=== PATIENT | female | born 2000 | race Caucasian/White ===

== ENCOUNTER 2024-04-06 15:18 | Emergency (ER) | payer BC, MEDICAID ==
[~2024-04-06] VITALS: Ht 172.7 cm; Wt 65.0 kg
[2024-04-06 15:23] VITALS: O2SAT 99
[2024-04-06 15:38] VITALS: BP 114/75; PULSE 64; RESP 18; TEMP 98.7; O2SAT 99
[2024-04-06 15:47] LABS: BASOPHILS % 0.8 % (0.0-2.0); EOSINOPHILS % 2.1 % (0.0-5.0); HEMATOCRIT. 39.3 % (36.0-48.0); HEMOGLOBIN. 13.3 g/dL (12.0-16.0); LYMPHOCYTES % 34.9 % (20.0-50.0); MEAN CORPUSCULAR HGB CONC 33.8 g/dL (31.0-37.0); MEAN CORPUSCULAR VOLUME 85.8 fL (81.0-99.0); MEAN PLATELET VOLUME 9.3 fl (7.4-10.4); MONOCYTES % 6.8 % (2.0-8.0); NEUTROPHILS % 55.4 % (40.0-76.0); PLATELET 213 x1000/uL (130-400); RED BLOOD CELL COUNT 4.58 mill/uL (4.2-5.4); RED CELL DISTRIBUTION WIDTH 13.9 % (11.6-14.6); WHITE BLOOD COUNT 4.2 x1000/uL (4.5-11.0)
[2024-04-06 15:53] LABS: CHLORIDE 106 mEq/L (98-107); POTASSIUM 4.3 mEq/L (3.5-5.1); SODIUM 140 mEq/L (136-145)
[2024-04-06 15:54] LABS: CALCIUM 9.9 mg/dL (8.7-10.4); CARBON DIOXIDE 29 mEq/L (21-32)
[2024-04-06 15:59] LABS: CREATININE 0.7 mg/dL (0.6-1.0); GLUCOSE 85 mg/dL (70-105); UREA NITROGEN BLOOD 10 mg/dL (9-23)
[2024-04-06 16:48] LABS: HCG SCREEN NEGATIVE
== END 2024-04-06 19:11 | disposition home or self-care (01) ==
LOC: ER 15:18
DX: O34.81 Maternal care for other abnormalities of pelvic organs, first trimester (principal); N83.201 Unspecified ovarian cyst, right side; Z3A.01 Less than 8 weeks gestation of pregnancy
CPT/HCPCS: 36415; 76830; 76856; 80048; 81025; 84703; 85025; 86850; 86900; 99284

== ENCOUNTER 2024-08-31 11:25 | Emergency (ER) | payer MEDICAID ==
[~2024-08-31] VITALS: Ht 172.7 cm; Wt 63.5 kg
[2024-08-31 11:27] VITALS: BP 124/85; RESP 16; TEMP 36.8; O2SAT 98
[2024-08-31 11:31] VITALS: PULSE 95; O2SAT 95
[2024-08-31] MEDS ORDERED: DIPH25CA83 PO (14:44)
[2024-08-31] MEDS ORDERED: HYDR-4233 TP (14:44)
== END 2024-08-31 14:52 | disposition home or self-care (01) ==
LOC: ER 11:25
DX: S80.861A Insect bite (nonvenomous), right lower leg, initial encounter (principal); S40.869A Insect bite (nonvenomous) of unspecified upper arm, initial encounter; W57.XXXA Bitten or stung by nonvenomous insect and other nonvenomous arthropods, initial encounter; Y93.89 Activity, other specified; Y92.89 Other specified places as the place of occurrence of the external cause; Y99.8 Other external cause status
CPT/HCPCS: 99282